=== PATIENT | female | born 1990 | race Caucasian/White ===

== ENCOUNTER 2017-10-01 09:28 | Emergency (ER) | payer OTHER ==
[2017-10-01 09:45] VITALS: BP 139/81
--- NOTE | 2017-10-01 10:42 | ED ---
Upper Extremity Pain - HPI Summary HPI Summary: 19 year female presents with ulnar pain greatest for the past month and half. States she was lifting weights and then developed the pain. She states the pain has gradually got worse. She states pain is worse when she tries to ulnar deviate her wrist. She denies any numbness or tingling. She denies any known injury. She denies any swelling to the joint. She has been placed her wrist in neutral splint which seems to be helping. She states she is not able to bend her wrist when she lifts things. She is right-handed. - History of Current Complaint Chief Complaint: UCUpperExtremity Stated Complaint: WRIST INJURY Time Seen by Provider: 10/01/17 10:09 Hx Last Menstrual Period: 09/21/17 - Allergies/Home Medications Allergies/Adverse Reactions: Allergies Allergy/AdvReac Type Severity Reaction Status Date / Time No Known Allergies Allergy Verified 10/01/17 09:36 Home Medications: Home Medications NK [No Home Medications Reported] 10/01/17 [History Confirmed 10/01/17] PMH/Surg Hx/FS Hx/Imm Hx Endocrine/Hematology History: Reports: Hx Diabetes - gestational diabetes during pregnancies only Denies: Hx Anticoagulant Therapy, Hx Blood Disorders, Hx Systemic Lupus Erythematosus, Hx Thyroid Disease, Hx Anemia Respiratory History: Reports: Hx Asthma Musculoskeletal History: Denies: Hx Arthritis, Hx Rheumatoid Arthritis - Surgical History Surgery Procedure, Year, and Place: 2 c-sections Infectious Disease History: No Infectious Disease History: Denies: Traveled Outside the [place] in Last 30 Days - Family History Known Family History: Positive: Unknown - states she's not close with her family - Social History Alcohol Use: None Substance Use Type: Reports: None Smoking Status (MU): Former Smoker Type: Cigarettes Amount Used/How Often: ! pack per day Length of Time of Smoking/Using Tobacco: reports quit with this Have You Smoked in the Last Year: Yes Review of Systems Negative: Fever Negative: Chest Pain Negative: Shortness Of Breath Positive: Myalgia - right wrist pain All Other Systems Reviewed And Are Negative: Yes Physical Exam Triage Information Reviewed: Yes Vital Signs On Initial Exam: Initial Vitals Temp Pulse Resp BP Pulse Ox 98 F 65 18 139/81 99 10/01/17 09:37 10/01/17 09:37 10/01/17 09:37 10/01/17 09:37 10/01/17 09:37 Vital Signs Reviewed: Yes Appearance: Positive: Well-Appearing Skin: Positive: Warm, Dry Head/Face: Positive: Normal Head/Face Inspection Eyes: Positive: Normal, Conjunctiva Clear Respiratory/Lung Sounds: Positive: Clear to Auscultation, Breath Sounds Present Cardiovascular: Positive: Normal, RRR Musculoskeletal: Positive: Strength/ROM Intact - right wrist, pain with ulnar deviation along ulnar aspect of wrist, Other - no pain with wrist supinated and flexed and extended. with f[place]in no pain along radial aspect but is pain along ulnar aspect, good pulses, capillary refill<2 secs Neurological: Positive: Normal Psychiatric: Positive: Normal Diagnostics - Vital Signs Vital Signs Temp Pulse Resp BP Pulse Ox 10/01/17 09:37 98 F 65 18 139/81 99 - Laboratory Lab Statement: Any lab studies that have been ordered have been reviewed, and results considered in the medical decision making process. Course/Dx - Course Course Of Treatment: 19 year female presents with ulnar pain greatest for the past month and half. States she was lifting weights and then developed the pain. She states the pain has gradually got worse. She states pain is worse when she tries to ulnar deviate her wrist. She denies any numbness or tingling. She denies any known injury. She denies any swelling to the joint. She has been placed her wrist in neutral splint which seems to be helping. She states she is not able to bend her wrist when she lifts things. She is right- handed. on exam when does sudhir has pain over ulnar aspect not radial. neurovascular intact. xray normal. will have continue conservative treatment and follow up with ortho. will have follow up with primary about blood pressure as is elevated at this visit. patient understand and agrees with plan. - Diagnoses Differential Diagnosis/HQI/PQRI: Positive: Fracture (Closed), Strain, Sprain Provider Diagnoses: Right wrist pain, Elevated blood pressure reading Discharge - Sign-Out/Discharge Documenting (check all that apply): Discharge/Admit/Transfer - Discharge Plan Condition: Good Disposition: HOME Patient Education Materials: Wrist Sprain (ED) Referrals: Cb TURNER,Gregg Marsh [Primary Care Provider] - Gregg Boss MD [Medical Doctor] - Additional Instructions: Follow up with ortho Continue using splint Take Tylenol or ibuprofen every 6 hours as needed for pain Apply ice, rest, elevate Return to ED if develop any new or worsening symptoms - Billing Disposition and Condition Condition: GOOD Disposition: HOME
--- NOTE | 2017-10-01 11:11 | RAD ---
HISTORY: Right ulnar wrist pain COMPARISONS: None VIEWS: 3, Frontal, lateral, and oblique views of the right wrist FINDINGS: BONE DENSITY: Normal. BONES: There is no displaced fracture. JOINTS: There is no arthropathy. ALIGNMENT: There is no dislocation. SOFT TISSUES: Unremarkable. OTHER FINDINGS: None. IMPRESSION: NO ACUTE OSSEOUS INJURY. IF SYMPTOMS PERSIST, RECOMMEND REPEAT IMAGING.
== END 2017-10-01 11:27 | disposition home or self-care (01) ==
LOC: UCEAST 09:28
DX: M25.531 Pain in right wrist (principal); R03.0 Elevated blood-pressure reading, without diagnosis of hypertension; Z86.32 Personal history of gestational diabetes; J45.909 Unspecified asthma, uncomplicated; Z87.891 Personal history of nicotine dependence
CPT/HCPCS: 99211; G0463

== ENCOUNTER 2018-08-21 15:33 | Emergency (ER) | payer OTHER ==
[2018-08-21 16:06] VITALS: BP 155/89
--- NOTE | 2018-08-21 16:38 | UC ---
Dental HPI - HPI Summary HPI Summary: 28 y/o female presents to the urgent care c/o dental pain on the Rt upper jaw s/ p dental procedure about 2 weeks ago. Pt reports she had a a dental filling on molar #2 by her dentist. He told her that she probably will need a root canal. However her dental insurance didn't cover for it. He Rx Penicillin which she didn't finished completely since symptoms improve. Now she developed dental pain since yesterday and was unable to sleep last night. pain today is 8/10. However, she took Ibuprofen PO 800mg around 1400pm today. Pt denies fever, SOB, trismus, MOORE, chest pain, abdominal pain, N/V/D. - History of Current Complaint Chief Complaint: UCDentalProblem Stated Complaint: TOOTH ACHE Time Seen by Provider: 08/21/18 16:35 Hx Obtained From: Patient Hx Last Menstrual Period: [id number] ?: No Onset/Duration: Gradual Onset, Lasting Days - 1 day, Still Present, Worse Since - today Severity: Severe Pain Intensity: 8 Pain Scale Used: 0-10 Numeric Aggravating Factor(s): Chewing Alleviating Factor(s): OTC Meds - ibuprofen PO Related History: Previous Dental Care on Same Tooth - Allergies/Home Medications Allergies/Adverse Reactions: Allergies Allergy/AdvReac Type Severity Reaction Status Date / Time No Known Allergies Allergy Verified 08/21/18 16:06 Home Medications: Home Medications Aspirin/Acetaminophen/Caffeine [Excedrin Extra Strength Caplet] 2 each PO Q8H [History Confirmed 08/21/18] PMH/Surg Hx/FS Hx/Imm Hx Previously Healthy: Yes Endocrine History: Diabetes - gestational DM type II Respiratory History: Asthma - as a child Other History Of: Negative For: Anticoagulant Therapy - Surgical History Surgical History: Yes Surgery Procedure, Year, and Place: 2 c-sections - Family History Known Family History: Positive: Unknown - states she's not close with her family - Social History Occupation: Employed Full-time Lives: With Family Alcohol Use: None Substance Use Type: None Smoking Status (MU): Former Smoker Type: Cigarettes Amount Used/How Often: ! pack per day Length of Time of Smoking/Using Tobacco: reports quit with this Have You Smoked in the Last Year: Yes When Did the Patient Quit Smoking/Using Tobacco: with this approx. 2 mos ago Household Exposure Type: Cigarettes - Immunization History Most Recent Influenza Vaccination: 06/15/13 Most Recent Tetanus Shot: unk Most Recent Pneumonia Vaccination: none Review of Systems All Other Systems Reviewed And Are Negative: Yes Constitutional: Positive: Negative Skin: Positive: Negative Eyes: Positive: Negative ENT: Positive: Dental Pain - Rt upper jaw Respiratory: Positive: Negative Cardiovascular: Positive: Negative Gastrointestinal: Positive: Negative Genitourinary: Positive: Negative Motor: Positive: Negative Neurovascular: Positive: Negative Musculoskeletal: Positive: Negative Neurological: Positive: Headache - mild Psychological: Positive: Negative Is Patient Immunocompromised?: No Physical Exam - Summary Physical Exam Summary: Vital Signs Reviewed: Yes General: Well-Appearing, Well-Nourished female sitting in the examining table w/ o any respiratory or pain distress Eyes: Positive: Conjunctiva Clear - PERRLA, EOMI, ENT: Positive: Normal ENT inspection, Hearing grossly normal, Pharynx normal, TMs normal - B/L external ear canals clear,. Negative: Tonsillar swelling, Tonsillar exudate, Trismus Dental: Positive: Positive dental filling in place over molar #2 w/ mild gingival swelling and erythema, tender to percussion. w/ positive anterior Cervical Lymphadenopathy. Neck: Positive: Supple Respiratory: Positive: Chest non-tender, Lungs clear, Normal breath sounds, No respiratory distress Cardiovascular: Positive: RRR, No Murmur, Pulses Normal, Brisk Capillary Refill Abdomen Description: Positive: Nontender, No Organomegaly, Soft. Negative: CVA Tenderness (R), CVA Tenderness (L) Bowel Sounds: Positive: Present Musculoskeletal: Positive: Strength Intact, ROM Intact, No Edema Neurological Exam: Normal Psychological Exam: Normal Skin Exam: Normal Triage Information Reviewed: Yes Vital Signs: Initial Vital Signs Temp 97.8 F 08/21/18 16:03 Pulse 60 08/21/18 16:03 Resp 16 08/21/18 16:03 BP 155/89 08/21/18 16:03 Pulse Ox 100 08/21/18 16:03 Dental Complaint Course/Dx - Course Course Of Treatment: 28 y/o female presents to the urgent care c/o dental pain on the Rt upper jaw s/ p dental procedure about 2 weeks ago. Pt reports she had a a dental filling on molar #2 by her dentist. He told her that she probably will need a root canal. However her dental insurance didn't cover for it. He Rx Penicillin which she didn't finished completely since symptoms improve. Now she developed dental pain since yesterday and was unable to sleep last night. pain today is 8/10. However, she took Ibuprofen PO 800mg around 1400pm today. Pt denies fever, SOB, trismus, MOORE, chest pain, abdominal pain, N/V/D. Hx obtained. Pt with possible dental abscess around molar #2 w/ a fiiling in place on the same molar on examination. Pt given Tylenol PO and viscous Lidocaine at the clinic to alleviate symptoms by the nurse. Pt Rx Clindamycin PO and Ibuprofen PO fas directed below. Pt strongly advised to f/u with Dentist as soon as possible further evaluation and treatment. Pt's BP is elevated today advised to decrease salt in diet, monitor BP and f/u with PCP for further management.D/C instructions explained. Pt understood and agreed with plan of care. - Differential Dx/Diagnosis Differential Diagnosis/Dx: Dental Abscess, Dental Caries, Fractured Tooth, Odontogenic Pain, Peridontic Disease, Peritonsillar Abcess Provider Diagnosis: Dental abscess, Pain, dental, Elevated BP without diagnosis of hypertension Discharge - Sign-Out/Discharge Documenting (check all that apply): Patient Departure - D/C home All imaging exams completed and their final reports reviewed: No Studies - Discharge Plan Condition: Stable Disposition: HOME Prescriptions: Clindamycin Cap(NF) [Clindamycin Cap 300 mg Cap(NF)] 300 mg PO TID #30 cap Ibuprofen TAB* [Motrin TAB* 800 MG] 800 mg PO Q6H PRN #30 tab PRN Reason: dental pain Lidocaine 2% VISCOUS* [Xylocaine 2% Viscous*] 15 ml SWISH SPIT Q6H PRN #1 btl PRN Reason: dental pain Patient Education Materials: Dental Abscess (ED), Low-Sodium Diet (ED) Referrals: Cb TURNER,Gregg Marsh [Primary Care Provider] - 2 Days Additional Instructions: 1-Please take full course of antibiotic to avoid resistance. Please take yogurt w/ probiotics or Culturelle to protect your GI system 2- Take Ibuprofen PO q6-8hrs prn after meals to alleviate pain and swelling. Also take the viscous Lidocaine as directed to alleviate pain. 3- F/u with your Dentist as soon as possible for further treatment on your recent dental procedure. 4-Your BP is elevated today. please decrease salt in your diet, monitor BP and if it continues to be elevated please f/u with your PCP for further management. - Billing Disposition and Condition Condition: STABLE Disposition: Home
[2018-08-21] MEDS ORDERED: Acetaminophen TAB* 325 MG PO ONE (17:06)
[2018-08-21] MEDS ORDERED: Lidocaine 2% VISCOUS* 15 ML UDC SWISH SPIT ONE (17:07)
== END 2018-08-21 17:18 | disposition home or self-care (01) ==
LOC: UCEAST 15:33
DX: K04.7 Periapical abscess without sinus (principal); R03.0 Elevated blood-pressure reading, without diagnosis of hypertension; K08.89 Other specified disorders of teeth and supporting structures; Z87.891 Personal history of nicotine dependence
CPT/HCPCS: 99212; A9270-GY; G0463